=== PATIENT | male | born 1965 | race African-American/Black ===

== ENCOUNTER 2023-07-07 10:14 | Emergency (ER) | payer MEDICAID ==
[~2023-07-07] VITALS: Ht 182.9 cm; Wt 136.1 kg
[2023-07-07 10:32] VITALS: BP 224/141; PULSE 98; RESP 16; TEMP 98.2; O2SAT 95
== END 2023-07-07 12:20 | disposition home or self-care (01) ==
LOC: ER 10:14
DX: M70.22 Olecranon bursitis, left elbow (principal); I11.0 Hypertensive heart disease with heart failure; I50.9 Heart failure, unspecified; Z90.49 Acquired absence of other specified parts of digestive tract; Y93.89 Activity, other specified
CPT/HCPCS: 73080; 99283